=== PATIENT | female | born 1995 | race African-American/Black ===

== ENCOUNTER 2017-04-30 14:33 | Emergency (ER) | payer MEDICAID ==
[~2017-04-30] VITALS: Ht 167.6 cm; Wt 95.0 kg
[2017-04-30] MEDS ORDERED: SODIUM CHLORIDE 0.9% 1,000 ML IV ONE (19:00)
[2017-04-30] MEDS: ONDANSETRON HCL 4MG/2ML VIAL IV ONE ×2 (19:14→20:04)
[2017-04-30] MEDS: KETOROLAC 30MG/ML VIAL IV ONE ×2 (19:14→20:04)
[2017-04-30 20:04] VITALS: BP 113/62
== END 2017-04-30 21:01 | disposition home or self-care (01) ==
LOC: ER 18:31
DX: R51 Headache (principal); R11.10 Vomiting, unspecified
CPT/HCPCS: 96374; 96375; 99284; J1885; J2405; J7030